=== PATIENT | male | born 1975 | race Caucasian/White ===

== ENCOUNTER 2023-08-09 00:36 | Day surgery (SDC) | payer OTHER, SELFPAY ==
[2023-08-09 07:29] VITALS: BP 107/76; PULSE 52; RESP 18; TEMP 36.1; O2SAT 100; BMI 24.3
[2023-08-09] MEDS: LACTATED RINGERS 1,000 ML 150 ML IV CONT (07:52)
--- NOTE | 2023-08-09 08:04 | P.PNAN_ITS ---
Anes - Initial Pre Proc Eval Procedure: Operation Date: 08/09/23 08:30 Proposed Procedures p Screening Colonoscopy - Raphael Catherine MD Date/Time: 08/09/23 08:04 Surgeon: Raphael Catherine MD Pre Op Diagnosis: neoplasm screening, Fam Hx of colon neoplasm Patient Data Age: 48 Gender: M Height: 1.73 m Weight: 72.6 kg Last Vital Signs Temp 97.0 F L 08/09/23 07:29 Pulse 52 L 08/09/23 07:29 Resp 18 08/09/23 07:29 BP 107/76 08/09/23 07:29 Pulse Ox 100 08/09/23 07:29 O2 Del Method Room Air 08/09/23 07:29 Allergies Allergy/AdvReac Type Severity Reaction Status Date / Time Penicillins Allergy Unknown Hives Verified 08/09/23 07:28 Home Medications Medication Instructions Recorded Confirmed Type No Home Medications 01/22/20 08/09/23 History Patient hx anesthesia problems: none Family hx anesthesia problems: none Results Review: All pre-operative results and documents have been reviewed as part of the pre- operative evaluation. [facility] Family History Family History Grandparent Cerebrovascular accident Family history of coronary artery disease Father Carcinoma of colon Mother Family history of malignant neoplasm of breast in first degree relative Social History Social History (Updated 12/17/22 @ 09:55 by Susanna Milton [facility]) Smoking status: Never smoker Alcohol intake: current Drinks per week: 12 Lack of Transportation: No Lack of Food: Never True Current Housing: I Have Housing Concerned About Future Housing: No Difficulty Paying Gas/Electric Bills: No Difficulty Paying for Meds: No Currently Unemployed: No Education: Bachelor's Degree Difficulty w/ Childcare or Family Care: No Living arrangements: with family Spiritual care concerns: No Anes - Eval Final PreProcedure Day of Procedure 08/09/23 08:04 Patient weight: normal Heart: regular rate and rhythm Lungs: clear to auscultation Airway: Mallampati scale class II Neurological: alert and oriented Last oral intake: >/= 8 hours ASA classification: I Emergent: no Anesthetic plan: proceed Anesthesia type and monitoring: general GIVS and standard monitoring Results Review: All pre-operative results and documents have been reviewed as part of the pre- operative evaluation. Informed Consent: The patient's anesthetic plan and its attendant risks and benefits were discussed with the patient/family/POA. Questions were solicited and answers provided to the satisfaction of the patient/family/POA.
--- NOTE | 2023-08-09 08:08 | PM.HPGS ---
History of Present Illness History of Present Illness Consent: Risks, benefits, and alternatives have been discussed and questions answered. Patient agrees to proceed with procedure. Chief complaint: neoplasm screening, Fam Hx of colon neoplasm Narrative: Jose Mercado is a 48 year old male here for first screening colonoscopy Review of Systems Constitutional: Constitutional: Denies headache(s) and Denies weakness Eyes: Eyes: Denies blurry vision ENT: Reports Normal hearing present, Denies headache(s) and Denies neck pain Cardiovascular: Cardiovascular: Denies chest pain and Denies dyspnea Respiratory: Respiratory: Denies dyspnea Gastrointestinal: Gastrointestinal: Reports no additional gastrointestinal complaints Genitourinary: Genitourinary: Denies dysuria Musculoskeletal: Musculoskeletal: Denies neck pain Integumentary/Breasts: Skin/Breast: Denies dry skin Neurologic: Reports Normal hearing present, Denies headache(s) and Denies weakness Psychiatric: Psychiatric: Denies anxiety Endocrine: Endocrine: Denies change in body appearance Hematologic/Lymphatic: Hematologic/Lymphatic: Denies easy bleeding Allergic/Immunologic: Allergic/Immunologic: Denies urticaria [facility] Family History Family History Grandparent Cerebrovascular accident Family history of coronary artery disease Father Carcinoma of colon Mother Family history of malignant neoplasm of breast in first degree relative Social History Social History (Updated 12/17/22 @ 09:55 by Susanna Milton [facility]) Smoking status: Never smoker Alcohol intake: current Drinks per week: 12 Lack of Transportation: No Lack of Food: Never True Current Housing: I Have Housing Concerned About Future Housing: No Difficulty Paying Gas/Electric Bills: No Difficulty Paying for Meds: No Currently Unemployed: No Education: Bachelor's Degree Difficulty w/ Childcare or Family Care: No Living arrangements: with family Spiritual care concerns: No Meds Home Medications and Allergies Home Medications Medication Instructions Recorded Confirmed Type No Home Medications 01/22/20 08/09/23 History Allergies Allergy/AdvReac Type Severity Reaction Status Date / Time Penicillins Allergy Unknown Hives Verified 08/09/23 07:28 Vital Signs Vital Signs - 24 hr 08/09/23 07:29 Temperature 97.0 F L Pulse Rate 52 L Respiratory Rate 18 Blood Pressure 107/76 Pulse Oximetry 100 Oxygen Delivery Room Air Exam Const: General: comfortable and no acute distress HENMT: Face/Nose/Sinus: Normal nares present Eyes: General: appearance normal, both eyes and all related structures Neck: Neck: no JVD Resp: Auscultation: clear to auscultation bilaterally Cardio: Rate: regular rate Rhythm: regular rhythm GI: Inspection: non-distended GI Palp: Yes Soft to palpation Skin: General skin exam: normal color Neuro: General: gait normal Speech: normal speech Extrem: General: normal to inspection Psych: Mental Status: mental status grossly normal Assessment and Plan Assessment and plan (1) Screening for colon cancer: Code(s): Z12.11 - Encounter for screening for malignant neoplasm of colon Status: Acute Assessment and Plan: colonoscopy
[2023-08-09 08:39] VITALS: BP 119/75; PULSE 65; RESP 18; O2SAT 100
[2023-08-09 08:41] VITALS: BP 108/74; PULSE 65; RESP 18; O2SAT 99
[2023-08-09 08:50] VITALS: BP 113/81; PULSE 62; RESP 18; O2SAT 100
== END 2023-08-09 08:56 | disposition home or self-care (01) ==
PROVIDERS: PCP Family Medicine; Visit Provider Internal Medicine Gastroenterology
PROC: 0DJD8ZZ Inspection of Lower Intestinal Tract, Via Natural or Artificial Opening Endoscopic (ICD-10-PCS; CPT 45378; principal; 2023-08-09 08:30)
DX: Z12.11 Encounter for screening for malignant neoplasm of colon (principal); K64.8 Other hemorrhoids; Z80.0 Family history of malignant neoplasm of digestive organs; Z80.3 Family history of malignant neoplasm of breast
CPT/HCPCS: 45378; J2704; J7120